=== PATIENT | male | born 1945 | race Caucasian/White ===

== ENCOUNTER 2023-01-13 23:23 | Observation (INO) | payer OTHER ==
[~2023-01-13 23:23] MED LIST: ESOM20CA31 PO
[2023-01-14 00:22] LABS: BILIRUBIN,URINE NEGATIVE (NEGATIVE); COLOR,URINE YELLOW (YELLOW); GLUCOSE, URINE (UA) NEGATIVE (NEGATIVE); KETONES,URINE 5 mg/dL (NEGATIVE); LEUKOCYTE ESTERASE ,URINE LARGE Leu/uL (NEGATIVE); NITRATE,URINE NEGATIVE (NEGATIVE); OCCULT BLOOD,URINE LARGE (NEGATIVE); PROTEIN,URINE 100 mg/dL (NEGATIVE); UROBILINOGEN,URINE 0.2 mg/dL (0.2-1.0)
[2023-01-14 00:25] LABS: APPEARANCE,URINE CLOUDY (CLEAR)
[2023-01-14 00:35] LABS: BASOPHILS % (AUTO) 0.5 % (0.0-5.0); EOSINOPHILS % (AUTO) 0.3 % (0.0-8.0); HEMATOCRIT 48.3 % (42-54); LYMPHOCYTES % (AUTO) 16.3 % (21.0-51.0); MEAN CORPUSCULAR HEMOGLOBIN 27.8 pg (27.0-33.0); MEAN CORPUSCULAR HGB CONC 32.3 g/dL (32.0-36.0); MEAN CORPUSCULAR VOLUME 85.9 fL (79-99); NEUTROPHILS % (AUTO) 72.4 % (40.0-77.0); PLATELET COUNT (AUTO) 190 K/uL (130-400); RED BLOOD CELL COUNT(AUTO) 5.62 MIL/uL (4.50-6.20); RED CELL DISTRIBUTION WIDTH 13.4 % (11.0-15.5); WHITE BLOOD COUNT (AUTO) 7.5 K/uL (4.8-10.8)
[2023-01-14 00:41] LABS: RBC,URINE TNTC /HPF (0-1)
[2023-01-14 00:43] LABS: WBC,URINE 51-100 /HPF (0-1)
[2023-01-14 00:43] LABS: ALBUMIN 3.6 g/dL (3.5-5.0); CREATININE 1.3 mg/dL (0.5-1.5); POTASSIUM 3.4 mmol/L (3.5-5.1); TOTAL PROTEIN, SERUM 7.5 g/dL (6.0-8.3)
[2023-01-14 00:45] LABS: BACTERIA,URINE Rare /HPF (None Seen); SQUAMOUS EPITHELIAL CELL,UR Few /HPF (0-2)
[2023-01-14] MEDS ORDERED: LEVOFLOXACIN 500 MG/D5W 100 ML 100 ML ONE (01:37)
[2023-01-14] MEDS ORDERED: LEVOFLOXACIN 500 MG/D5W 100 ML 100 ML IV SCH (02:00)
[2023-01-14] MEDS ORDERED: LEVO250T75 PO (05:41)
[2023-01-14] MEDS ORDERED: CEPH500T PO (09:20)
[2023-01-14] MEDS ORDERED: CEFTRIAXONE 1G VIAL IVPB SCH (10:00)
[2023-01-14 16:54] VITALS: BP 134/76; PULSE 82; RESP 18; O2SAT 98
== END 2023-01-14 16:56 | disposition left against medical advice (07) ==
LOC: EDH 23:23 → EDHIP 01-14 09:32
PROVIDERS: ADMIT Internal Medicine; ATTEND Internal Medicine
DX: N39.0 Urinary tract infection, site not specified (principal); R33.9 Retention of urine, unspecified; Z53.29 Procedure and treatment not carried out because of patient's decision for other reasons
CPT/HCPCS: 96365; 96366; 96368; 99284; 80053; 85025; 87088; 81001; 36415; 76770; 94150; G0378 ×7; J1956; J0696